=== PATIENT | female | born 1965 | race Caucasian/White ===

== ENCOUNTER 2017-12-11 12:05 | Observation (INO) | payer BC, OTHER ==
[~2017-12-11] VITALS: Ht 160 cm; Wt 96.9 kg
[2017-12-11] MEDS ORDERED: ASPIRIN 81 MG TABLET CHEW ONE (12:34)
[2017-12-11] MEDS ORDERED: MORPHINE SULFATE 4 MG/ML, 1ML ONE (12:34)
[2017-12-11] MEDS ORDERED: ONDANSETRON 2MG/ML, 2ML ONE (12:34)
[2017-12-11] MEDS ORDERED: SODIUM CHLORIDE FLUSH 10ML SYR IVF ONE (13:00)
[2017-12-11] MEDS ORDERED: ONDANSETRON 2MG/ML, 2ML IVPush ONE (13:00)
[2017-12-11] MEDS ORDERED: ASPIRIN 81 MG TABLET CHEW PO ONE (13:00)
[2017-12-11] MEDS ORDERED: MORPHINE SULFATE 4 MG/ML, 1ML IVPush PRN (13:00)
[2017-12-11 13:03] LABS: BASOPHILS # (AUTO) 0.05 x10^3/uL (0-0.1); BASOPHILS % (AUTO) 1 % (0-1); EOSINOPHILS # (AUTO) 0.13 x10^3/uL (0-0.4); EOSINOPHILS % (AUTO) 1 % (1-7); LYMPHOCYTES # (AUTO) 2.56 x10^3/uL (1-3.4); LYMPHOCYTES % (AUTO) 25 % (22-44); MD NO; MEAN CORPUSCULAR HEMOGLOBIN 30.5 pg (27.0-34.8); MEAN CORPUSCULAR HGB CONC 34.1 g/dL (32.4-35.8); MEAN CORPUSCULAR VOLUME 89.4 fL (80-100); MEAN PLATELET VOLUME 8.9 fL (7.4-10.4); MONOCYTES # (AUTO) 0.85 x10^3/uL (0.2-0.8); MONOCYTES % (AUTO) 8 % (2-9); NEUTROPHILS # (AUTO) 6.59 x10^3/uL (1.8-6.8); NEUTROPHILS % (AUTO) 65 % (42-75); PLATELET COUNT 350 x10^3/uL (130-400); RED BLOOD COUNT 5.31 x10^6/uL (3.82-5.3); RED CELL DISTRIBUTION WIDTH 12.6 % (9.6-15.2)
[2017-12-11] MEDS ORDERED: ALPR-475 PO (13:08)
[2017-12-11 13:11] LABS: ALBUMIN 3.6 g/dL (3.4-5.0); ANION GAP 9 mmol/L (5-15); CALCIUM 8.6 mg/dL (8.5-10.1); CHLORIDE 110 mmol/L (98-107); CREATININE 0.63 mg/dL (0.55-1.02)
[2017-12-11] MEDS ORDERED: TRAM100T33 PO (13:11)
[2017-12-11] MEDS ORDERED: PREG150C PO (13:11)
[2017-12-11] MEDS ORDERED: TIZA4CAP PO (13:11)
[2017-12-11] MEDS ORDERED: METO25TA35 PO (13:11)
[2017-12-11] MEDS ORDERED: TOPI50TA35 PO (13:13)
[2017-12-11 13:15] LABS: TROPONIN I < 0.015 ng/mL (0.000-0.045)
--- NOTE | 2017-12-11 13:44 | NUR ---
PT RPTS NO CHANGE IN CHEST DISCOMFORT, PT STATES THAT SHE HAD A SUDDEN INCREASE IN THE PAIN WITH RADIATION INTO RIGHT SHOULDER. VSS. LABS AND XRAY RESULTS POSTED. TO SEE PT.
--- NOTE | 2017-12-11 13:53 | NUR ---
ER LC HULL AT BEDSIDE, TEST RESULTS REVIEWED. CHEST PAIN DISCUSSED. DR. GRIGSBY TO SEE PT.
--- NOTE | 2017-12-11 14:44 | NUR ---
PT AWARE DR GRIGSBY WILL BE REVIEWING HER TEST RESULTS AND DISCUSSING POC.
[2017-12-11] MEDS ORDERED: LORazepam 2 MG/ML, 1ML IVPush ONE (15:00)
[2017-12-11] MEDS ORDERED: LORazepam 2 MG/ML, 1ML ONE (15:40)
--- NOTE | 2017-12-11 15:56 | NUR ---
SBAR RPT TO EDUARDO JESUS. PT ADMIT TO ROOM [id number]
[2017-12-11] MEDS ORDERED: ACETAMINOPHEN 325 MG TABLET PO PRN (16:30)
[2017-12-11] MEDS ORDERED: ENALAPRILAT 1.25 MG/ML, 2ML IVPush PRN (16:30)
[2017-12-11 16:36] VITALS: BP 105/71
[2017-12-11 16:54] LABS: FREE T4 (FREE THYROXINE) 0.93 ng/dL (0.76-1.46); THYROID STIMULATING HORMONE 1.32 mIU/L (0.358-3.740)
[2017-12-11] MEDS ORDERED: NITROGLYCERIN 0.4 MG BOTTLE (25 TABS) SL PRN (17:00)
[2017-12-11] MEDS: ENOXAPARIN 40 MG/0.4 ML SQ SCH (17:49)
[2017-12-11] MEDS: SODIUM CHLORIDE 0.9% 1,000 ML IV SCH (17:49)
[2017-12-11 18:08] LABS: CHOL/HDL RATIO 3.9; CHOLESTEROL, TOTAL 244 mg/dL (140-239); HDL CHOL % 26 % (28-40); HDL CHOLESTEROL (DIRECT) 63 mg/dL (40-60); LDL CHOLESTEROL,CALCULATED 145 mg/dL (54-169); TRIGLYCERIDES 178 mg/dL (50-200); VLDL CHOLESTEROL 36 mg/dL (0-25)
[2017-12-11 18:09] LABS: LDL/HDL RATIO 2.3 (0.5-3.0); TROPONIN I < 0.015 ng/mL (0.000-0.045)
[2017-12-11 19:32] VITALS: BP 93/62
[2017-12-11] MEDS ORDERED: METOPROLOL TARTRATE 25 MG TABLET PO SCH (21:00)
[2017-12-11] MEDS: PREGABALIN 150 MG CAPSULE PO SCH (22:24)
[2017-12-11] MEDS: ATORVASTATIN 40 MG TABLET PO SCH (22:24)
[2017-12-11] MEDS: TIZANIDINE 4MG TABLET PO SCH (22:25)
[2017-12-11] MEDS: TOPIRAMATE 25 MG TABLET PO SCH (22:26)
[2017-12-12 00:57] LABS: TROPONIN I < 0.015 ng/mL (0.000-0.045)
[2017-12-12 03:18] VITALS: BP_SYST 101; BP_SYST 103; BP_SYST 104; BP_DIAS 69; BP_DIAS 70
[2017-12-12 05:05] LABS: BASOPHILS # (AUTO) 0.02 x10^3/uL (0-0.1); BASOPHILS % (AUTO) 0 % (0-1); EOSINOPHILS % (AUTO) 1 % (1-7); LYMPHOCYTES % (AUTO) 22 % (22-44); MD NO; MEAN CORPUSCULAR HEMOGLOBIN 30.2 pg (27.0-34.8); MEAN CORPUSCULAR HGB CONC 33.3 g/dL (32.4-35.8); MEAN CORPUSCULAR VOLUME 90.6 fL (80-100); MEAN PLATELET VOLUME 8.8 fL (7.4-10.4); MONOCYTES # (AUTO) 0.62 x10^3/uL (0.2-0.8); MONOCYTES % (AUTO) 8 % (2-9); NEUTROPHILS # (AUTO) 5.23 x10^3/uL (1.8-6.8); NEUTROPHILS % (AUTO) 68 % (42-75); PLATELET COUNT 290 x10^3/uL (130-400); RED BLOOD COUNT 4.86 x10^6/uL (3.82-5.3); RED CELL DISTRIBUTION WIDTH 12.8 % (9.6-15.2)
[2017-12-12 05:14] LABS: CHLORIDE 109 mmol/L (98-107)
[2017-12-12 05:20] LABS: ANION GAP 7 mmol/L (5-15); CALCIUM 8.4 mg/dL (8.5-10.1); CREATININE 0.53 mg/dL (0.55-1.02)
[2017-12-12 05:21] LABS: ALANINE AMINOTRANSFERASE 39 U/L (12-78); ALBUMIN 3.1 g/dL (3.4-5.0); ALKALINE PHOSPHATASE 113 U/L (45-117); BILIRUBIN,TOTAL 0.5 mg/dL (0.2-1.0); TOTAL PROTEIN 6.2 g/dL (6.4-8.2)
[2017-12-12] MEDS: SODIUM CHLORIDE 0.9% 1,000 ML IV SCH ×2 (08:03→21:55)
[2017-12-12] MEDS: TOPIRAMATE 25 MG TABLET PO SCH ×2 (08:04→21:54)
[2017-12-12] MEDS: ASPIRIN 81 MG TABLET CHEW PO SCH (08:04)
[2017-12-12 08:39] VITALS: BP 121/82
[2017-12-12 11:51] VITALS: BP 126/78
[2017-12-12] MEDS: PREGABALIN 150 MG CAPSULE PO SCH ×2 (11:52→21:54)
[2017-12-12] MEDS: METOPROLOL TARTRATE 25 MG TABLET PO SCH ×2 (11:52→21:00)
[2017-12-12] MEDS: TIZANIDINE 4MG TABLET PO SCH ×3 (11:53→21:54)
[2017-12-12 15:34] VITALS: BP 106/72
[2017-12-12] MEDS ORDERED: TIZANIDINE 2MG TABLET ONE (17:57)
[2017-12-12] MEDS: ENOXAPARIN 40 MG/0.4 ML SQ SCH (18:13)
[2017-12-12 19:20] VITALS: BP_SYST 85; BP_SYST 86; BP_SYST 95; BP_DIAS 56; BP_DIAS 62
[2017-12-12] MEDS: ATORVASTATIN 40 MG TABLET PO SCH (21:54)
[2017-12-13 00:51] VITALS: BP 96/66
[2017-12-13 05:26] VITALS: BP_SYST 123; BP_SYST 126; BP_SYST 130; BP_DIAS 83; BP_DIAS 84; BP_DIAS 85
[2017-12-13] MEDS ORDERED: NITROGLYCERIN 0.4 MG BOTTLE (25 TABS) SL PRN (06:00)
[2017-12-13] MEDS ORDERED: NITROGLYCERIN 0.4 MG/SPRAY SL PRN (06:00)
[2017-12-13] MEDS ORDERED: PREGABALIN 150 MG CAPSULE PO SCH (09:00)
[2017-12-13] MEDS: METOPROLOL TARTRATE 25 MG TABLET PO SCH (09:51)
[2017-12-13] MEDS: ASPIRIN 81 MG TABLET CHEW PO SCH (09:56)
[2017-12-13] MEDS: SODIUM CHLORIDE 0.9% 1,000 ML IV SCH (10:00)
[2017-12-13] MEDS ORDERED: PREGABALIN 75 MG CAPSULE PO SCH ×2 (10:30→21:00)
[2017-12-13] MEDS ORDERED: PREG75CA PO (12:08)
[2017-12-13] MEDS ORDERED: TOPI25TA32 PO (12:08)
[2017-12-13] MEDS ORDERED: TOPIRAMATE 25 MG TABLET PO SCH (21:00)
== END 2017-12-13 14:16 | disposition home or self-care (01) ==
LOC: ED 15:08 → INTOOBSV 15:09 → EDIP 15:09 → ED 15:27 → 5SO 16:25 → DCLOUNGE 12-13 13:55
PROVIDERS: ADMIT Family Medicine; ATTEND Family Medicine
DX: R55 Syncope and collapse (principal); R00.2 Palpitations; R07.89 Other chest pain; E66.9 Obesity, unspecified; E78.5 Hyperlipidemia, unspecified; D72.829 Elevated white blood cell count, unspecified; Z79.899 Other long term (current) drug therapy
CPT/HCPCS: 36415; 71045; 80048; 80053; 80061; 82040; 83880; 84439; 84443; 84484; 85025; 93005; 93306; 93880; 96361; 96372; 96374; 96375; 99285; G0378; J1650; J2060; J2405; J7030